=== PATIENT | male | born 1985 | race African-American/Black ===

== ENCOUNTER 2020-12-11 19:38 | Inpatient (IN) | payer OTHER ==
[2020-12-11] MEDS ORDERED: MAGNESIUM HYDROX 2400MG/30ML ORAL SUSPENSION 30 ML CUP PO PRN (23:34)
[2020-12-11] MEDS ORDERED: guaiFENesin 200 MG/10 ML 10 ML UNIT-DOSE CUPS PO PRN (23:34)
[2020-12-11] MEDS ORDERED: P-EPHED 60MG/TRIPROLIDI 2.5MG TABLET PO PRN (23:34)
[2020-12-11] MEDS ORDERED: IBUPROFEN 400 MG TABLET (FP) PO PRN (23:34)
[2020-12-11] MEDS ORDERED: LOPERAMIDE HCL 2 MG CAPSULE PO PRN (23:34)
[2020-12-11] MEDS ORDERED: ACETAMINOPHEN 325 MG TABLET (FP) PO PRN (23:34)
[2020-12-11] MEDS ORDERED: hydrOXYzine PAMOATE 25 MG CAPSULE (FP) PO PRN (23:34)
[2020-12-11] MEDS ORDERED: MAGNESIUM CITRATE 300 ML BOTTLE PO PRN (23:34)
[2020-12-12] MEDS ORDERED: TUBERCULIN PPD 5 TU/0.1ML VIAL ID ONE (02:32)
[2020-12-12] MEDS: MELATONIN 5 MG TABLETS PO SCH ×2 (04:09→21:07)
[2020-12-12] MEDS ORDERED: SPIRONOLACTONE 100 MG PO SCH (08:00)
[2020-12-12] MEDS: FUROSEMIDE 40 MG TABLET (FP) PO SCH (08:55)
[2020-12-12] MEDS: FLUTICASONE PROP 0.05% 16 GM NASAL SPRAY NS SCH (11:14)
[2020-12-12] MEDS: PRENATAL VITAMINS W/ FOLIC ACID TABLET (FP) PO SCH (11:15)
[2020-12-12] MEDS: SPIRONOLACTONE 25 MG TABLET PO SCH (11:15)
[2020-12-12] MEDS: PANTOPRAZOLE 40 MG TABLET PO SCH (11:22)
[2020-12-12 14:35] LABS: HEMOGLOBIN 11.5 GM/dL (11.7-16.9); MCH 35.2 pg (25.7-33.7); MCHC 34.7 g/dl (32.0-35.9); MEAN CELL VOLUME 101.3 fl (80-96); MEAN PLT VOLUME 10.8 fl (7.5-11.1); PLATELET COUNT 113 10^3/uL (134-434); RBC 3.26 M/mm3 (4.00-5.60); RDW 17.6 % (11.9-15.9)
[2020-12-12 16:48] LABS: URINE APPEARANCE CLEAR; URINE BILIRUBIN NEGATIVE (NEGATIVE); URINE COLOR DK YELLOW; URINE GLUCOSE (UA) NEGATIVE (NEGATIVE); URINE KETONE NEGATIVE (NEGATIVE); URINE LEUK ESTERASE NEGATIVE (NEGATIVE); URINE NITRITE NEGATIVE (NEGATIVE); URINE PROTEIN NEGATIVE (NEGATIVE)
[2020-12-12] MEDS: THIAMINE HCL 100 MG TABLET (FP) PO SCH (21:07)
[2020-12-12 22:59] LABS: CALCIUM 8.6 mg/dL (8.5-10.1); CREATININE 0.7 mg/dL (0.55-1.3); TOT PROT 8.1 g/dl (6.4-8.2)
[2020-12-13] MEDS: FUROSEMIDE 40 MG TABLET (FP) PO SCH (07:17)
[2020-12-13] MEDS: PANTOPRAZOLE 40 MG TABLET PO SCH (07:18)
[2020-12-13 08:48] LABS: BILIRUBIN,TOTAL 2.9 mg/dL (0.2-1); BLOOD UREA NITROGEN 11.6 mg/dL (7-18)
[2020-12-13] MEDS: SPIRONOLACTONE 25 MG TABLET PO SCH (10:10)
[2020-12-13] MEDS: PRENATAL VITAMINS W/ FOLIC ACID TABLET (FP) PO SCH (10:10)
[2020-12-13] MEDS: FLUTICASONE PROP 0.05% 16 GM NASAL SPRAY NS SCH (10:10)
[2020-12-13 15:25] LABS: SYPHILIS W/ RPR CONF NON-REACTIVE (NONREACTIVE)
[2020-12-13] MEDS: THIAMINE HCL 100 MG TABLET (FP) PO SCH (21:30)
[2020-12-13] MEDS: MELATONIN 5 MG TABLETS PO SCH (21:30)
[2020-12-14] MEDS: PANTOPRAZOLE 40 MG TABLET PO SCH (07:03)
[2020-12-14] MEDS: FUROSEMIDE 40 MG TABLET (FP) PO SCH (07:04)
[2020-12-14] MEDS: SPIRONOLACTONE 25 MG TABLET PO SCH (09:37)
[2020-12-14] MEDS: PRENATAL VITAMINS W/ FOLIC ACID TABLET (FP) PO SCH (09:37)
[2020-12-14] MEDS: FLUTICASONE PROP 0.05% 16 GM NASAL SPRAY NS SCH (09:37)
[2020-12-14] MEDS: THIAMINE HCL 100 MG TABLET (FP) PO SCH (21:04)
[2020-12-14] MEDS: MELATONIN 5 MG TABLETS PO SCH (21:04)
[2020-12-15] MEDS: PANTOPRAZOLE 40 MG TABLET PO SCH (07:03)
[2020-12-15] MEDS: FUROSEMIDE 40 MG TABLET (FP) PO SCH (07:03)
[2020-12-15] MEDS: PRENATAL VITAMINS W/ FOLIC ACID TABLET (FP) PO SCH (10:17)
[2020-12-15] MEDS: FLUTICASONE PROP 0.05% 16 GM NASAL SPRAY NS SCH (10:17)
[2020-12-15] MEDS: SPIRONOLACTONE 25 MG TABLET PO SCH (11:15)
[2020-12-15] MEDS: THIAMINE HCL 100 MG TABLET (FP) PO SCH (22:03)
[2020-12-15] MEDS: MELATONIN 5 MG TABLETS PO SCH (22:03)
[2020-12-16] MEDS: FUROSEMIDE 40 MG TABLET (FP) PO SCH (08:47)
[2020-12-16] MEDS: FLUTICASONE PROP 0.05% 16 GM NASAL SPRAY NS SCH (09:48)
[2020-12-16] MEDS: PANTOPRAZOLE 40 MG TABLET PO SCH (09:48)
[2020-12-16] MEDS: PRENATAL VITAMINS W/ FOLIC ACID TABLET (FP) PO SCH (09:48)
[2020-12-16] MEDS ORDERED: SPIRONOLACTONE 25 MG TABLET PO SCH (11:47)
[2020-12-16] MEDS: SPIRONOLACTONE 25 MG TABLET PO SCH (11:48)
[2020-12-16] MEDS: traZODone HCL 100 MG TABLET (FP) PO SCH (21:35)
[2020-12-16] MEDS: MELATONIN 5 MG TABLETS PO SCH (21:35)
[2020-12-16] MEDS: THIAMINE HCL 100 MG TABLET (FP) PO SCH (21:35)
[2020-12-17] MEDS: PANTOPRAZOLE 40 MG TABLET PO SCH (07:07)
[2020-12-17] MEDS: FUROSEMIDE 40 MG TABLET (FP) PO SCH (07:09)
[2020-12-17] MEDS ORDERED: PT OWN MED DRAWER 7, Y5N ONE (09:20)
[2020-12-17] MEDS: PRENATAL VITAMINS W/ FOLIC ACID TABLET (FP) PO SCH (10:29)
[2020-12-17] MEDS: FLUTICASONE PROP 0.05% 16 GM NASAL SPRAY NS SCH (10:30)
[2020-12-17] MEDS: SPIRONOLACTONE 25 MG TABLET PO SCH (10:30)
[2020-12-17] MEDS: MELATONIN 5 MG TABLETS PO SCH (21:00)
[2020-12-17] MEDS: THIAMINE HCL 100 MG TABLET (FP) PO SCH (21:00)
[2020-12-17] MEDS: traZODone HCL 100 MG TABLET (FP) PO SCH (21:01)
[2020-12-18] MEDS: PANTOPRAZOLE 40 MG TABLET PO SCH (08:49)
[2020-12-18] MEDS: FUROSEMIDE 40 MG TABLET (FP) PO SCH (09:48)
[2020-12-18] MEDS: FLUTICASONE PROP 0.05% 16 GM NASAL SPRAY NS SCH (09:49)
[2020-12-18] MEDS: PRENATAL VITAMINS W/ FOLIC ACID TABLET (FP) PO SCH (09:49)
[2020-12-18] MEDS: SPIRONOLACTONE 25 MG TABLET PO SCH (09:50)
[2020-12-18] MEDS: MELATONIN 5 MG TABLETS PO SCH (21:49)
[2020-12-18] MEDS: THIAMINE HCL 100 MG TABLET (FP) PO SCH (21:49)
[2020-12-18] MEDS: traZODone HCL 100 MG TABLET (FP) PO SCH (21:49)
[2020-12-19] MEDS: FUROSEMIDE 40 MG TABLET (FP) PO SCH (07:55)
[2020-12-19] MEDS: PANTOPRAZOLE 40 MG TABLET PO SCH (08:37)
[2020-12-19] MEDS: FLUTICASONE PROP 0.05% 16 GM NASAL SPRAY NS SCH (10:36)
[2020-12-19] MEDS: PRENATAL VITAMINS W/ FOLIC ACID TABLET (FP) PO SCH (10:36)
[2020-12-19] MEDS: SPIRONOLACTONE 25 MG TABLET PO SCH (10:55)
[2020-12-19 12:57] LABS: HEMOGLOBIN 11.1 GM/dL (11.7-16.9)
[2020-12-19 13:01] LABS: BASO % 0.4 % (0-2.0); CHLORIDE 106 mmol/L (98-107); EOS % 0.7 % (0-4.5); HEMATOCRIT 32.1 % (35.4-49); LYMPH % 13.5 % (8-40); MCH 35.5 pg (25.7-33.7); MCHC 34.7 g/dl (32.0-35.9); MEAN CELL VOLUME 102.3 fl (80-96); MEAN PLT VOLUME 10.5 fl (7.5-11.1); MONO % 9.4 % (3.8-10.2); PLATELET COUNT 163 10^3/uL (134-434); RBC 3.13 M/mm3 (4.00-5.60); RDW 15.4 % (11.9-15.9); SODIUM 134 mmol/L (136-145); WHITE BLOOD COUNT 9.6 K/mm3 (4.0-10.0)
[2020-12-19 13:03] LABS: ALBUMIN 2.1 g/dl (3.4-5.0); BLOOD UREA NITROGEN 12.3 mg/dL (7-18); CO2 26 mmol/L (21-32); GLUCOSE,RANDOM 88 mg/dL (74-106)
[2020-12-19 13:06] LABS: CREATININE 0.7 mg/dL (0.55-1.3); SGOT/AST 107 U/L (15-37)
[2020-12-19 13:08] LABS: TOT PROT 8.1 g/dl (6.4-8.2)
[2020-12-19 13:09] LABS: ALK PHOS 96 U/L (45-117); ANION GAP 2 MMOL/L (8-16); SGPT/ALT 23 U/L (13-61)
[2020-12-19] MEDS: traZODone HCL 100 MG TABLET (FP) PO SCH (21:00)
[2020-12-19] MEDS: MELATONIN 5 MG TABLETS PO SCH (21:00)
[2020-12-19] MEDS: THIAMINE HCL 100 MG TABLET (FP) PO SCH (21:01)
[2020-12-20] MEDS: FUROSEMIDE 40 MG TABLET (FP) PO SCH (07:00)
[2020-12-20] MEDS: PANTOPRAZOLE 40 MG TABLET PO SCH (07:00)
[2020-12-20] MEDS: PRENATAL VITAMINS W/ FOLIC ACID TABLET (FP) PO SCH (09:46)
[2020-12-20] MEDS: FLUTICASONE PROP 0.05% 16 GM NASAL SPRAY NS SCH (09:47)
[2020-12-20] MEDS: SPIRONOLACTONE 25 MG TABLET PO SCH (10:55)
[2020-12-20] MEDS: traZODone HCL 100 MG TABLET (FP) PO SCH (21:39)
[2020-12-20] MEDS: THIAMINE HCL 100 MG TABLET (FP) PO SCH (21:39)
[2020-12-20] MEDS: MELATONIN 5 MG TABLETS PO SCH (21:39)
[2020-12-21] MEDS: PANTOPRAZOLE 40 MG TABLET PO SCH (07:13)
[2020-12-21] MEDS: FUROSEMIDE 40 MG TABLET (FP) PO SCH (07:13)
[2020-12-21] MEDS: FLUTICASONE PROP 0.05% 16 GM NASAL SPRAY NS SCH (10:25)
[2020-12-21] MEDS: PRENATAL VITAMINS W/ FOLIC ACID TABLET (FP) PO SCH (10:25)
[2020-12-21] MEDS: SPIRONOLACTONE 25 MG TABLET PO SCH (10:25)
[2020-12-21] MEDS ORDERED: BACITRACIN/POLYMYXIN OPH OINT 3.5 GM TUBE OD SCH (11:00)
[2020-12-21] MEDS: BACITRACIN/POLYMYXIN OPH OINT 3.5 GM TUBE OD SCH ×2 (15:40→21:02)
[2020-12-21] MEDS: traZODone HCL 100 MG TABLET (FP) PO SCH (21:02)
[2020-12-21] MEDS: THIAMINE HCL 100 MG TABLET (FP) PO SCH (21:02)
[2020-12-21] MEDS: MELATONIN 5 MG TABLETS PO SCH (21:02)
[2020-12-22] MEDS: PANTOPRAZOLE 40 MG TABLET PO SCH (07:29)
[2020-12-22] MEDS: FUROSEMIDE 40 MG TABLET (FP) PO SCH (07:29)
[2020-12-22] MEDS: FLUTICASONE PROP 0.05% 16 GM NASAL SPRAY NS SCH (11:02)
[2020-12-22] MEDS: SPIRONOLACTONE 25 MG TABLET PO SCH (11:02)
[2020-12-22] MEDS: PRENATAL VITAMINS W/ FOLIC ACID TABLET (FP) PO SCH (11:03)
[2020-12-22] MEDS: BACITRACIN/POLYMYXIN OPH OINT 3.5 GM TUBE OD SCH ×2 (11:03→21:41)
[2020-12-22] MEDS ORDERED: BENZOYL PEROXIDE 5% 60 GM GEL..GRAM. TP ONE (12:13)
[2020-12-22] MEDS: traZODone HCL 100 MG TABLET (FP) PO SCH (21:40)
[2020-12-22] MEDS: THIAMINE HCL 100 MG TABLET (FP) PO SCH (21:40)
[2020-12-22] MEDS: MELATONIN 5 MG TABLETS PO SCH (21:40)
[2020-12-23] MEDS: FUROSEMIDE 40 MG TABLET (FP) PO SCH (07:02)
[2020-12-23] MEDS: PANTOPRAZOLE 40 MG TABLET PO SCH (07:02)
[2020-12-23] MEDS: PRENATAL VITAMINS W/ FOLIC ACID TABLET (FP) PO SCH (10:37)
[2020-12-23] MEDS: LIDOCAINE 5% TOPICAL PATCH TP SCH (10:38)
[2020-12-23] MEDS: BACITRACIN/POLYMYXIN OPH OINT 3.5 GM TUBE OD SCH ×2 (10:39→21:06)
[2020-12-23] MEDS: FLUTICASONE PROP 0.05% 16 GM NASAL SPRAY NS SCH (10:39)
[2020-12-23] MEDS: SPIRONOLACTONE 25 MG TABLET PO SCH (10:40)
[2020-12-23] MEDS: GABAPENTIN 100 MG CAPSULE PO SCH ×2 (13:55→21:05)
[2020-12-23] MEDS: THIAMINE HCL 100 MG TABLET (FP) PO SCH (21:05)
[2020-12-23] MEDS: traZODone HCL 100 MG TABLET (FP) PO SCH (21:05)
[2020-12-23] MEDS: MELATONIN 5 MG TABLETS PO SCH (21:05)
[2020-12-23] MEDS: LIDOCAINE PATCH REMOVAL MC SCH (21:06)
[2020-12-24] MEDS: GABAPENTIN 100 MG CAPSULE PO SCH ×3 (07:55→21:48)
[2020-12-24] MEDS: FUROSEMIDE 40 MG TABLET (FP) PO SCH (09:54)
[2020-12-24] MEDS: FLUTICASONE PROP 0.05% 16 GM NASAL SPRAY NS SCH (09:55)
[2020-12-24] MEDS: SPIRONOLACTONE 25 MG TABLET PO SCH (09:55)
[2020-12-24] MEDS: PANTOPRAZOLE 40 MG TABLET PO SCH (09:55)
[2020-12-24] MEDS: LIDOCAINE 5% TOPICAL PATCH TP SCH (09:55)
[2020-12-24] MEDS: BACITRACIN/POLYMYXIN OPH OINT 3.5 GM TUBE OD SCH ×2 (09:56→21:48)
[2020-12-24] MEDS: PRENATAL VITAMINS W/ FOLIC ACID TABLET (FP) PO SCH (09:56)
[2020-12-24] MEDS: MELATONIN 5 MG TABLETS PO SCH (21:48)
[2020-12-24] MEDS: LIDOCAINE PATCH REMOVAL MC SCH (21:48)
[2020-12-24] MEDS: traZODone HCL 100 MG TABLET (FP) PO SCH (21:48)
[2020-12-24] MEDS: THIAMINE HCL 100 MG TABLET (FP) PO SCH (21:48)
[2020-12-25] MEDS: GABAPENTIN 100 MG CAPSULE PO SCH ×3 (06:48→21:01)
[2020-12-25] MEDS: FUROSEMIDE 40 MG TABLET (FP) PO SCH (07:22)
[2020-12-25] MEDS: PANTOPRAZOLE 40 MG TABLET PO SCH (07:22)
[2020-12-25] MEDS: SPIRONOLACTONE 25 MG TABLET PO SCH (09:47)
[2020-12-25] MEDS: PRENATAL VITAMINS W/ FOLIC ACID TABLET (FP) PO SCH (09:47)
[2020-12-25] MEDS: BENZOYL PEROXIDE 5% 60 GM GEL..GRAM. TP PRN (09:48)
[2020-12-25] MEDS: LIDOCAINE 5% TOPICAL PATCH TP SCH (09:48)
[2020-12-25] MEDS: FLUTICASONE PROP 0.05% 16 GM NASAL SPRAY NS SCH (09:48)
[2020-12-25] MEDS: BACITRACIN/POLYMYXIN OPH OINT 3.5 GM TUBE OD SCH ×2 (09:49→21:03)
[2020-12-25] MEDS: traZODone HCL 100 MG TABLET (FP) PO SCH (21:01)
[2020-12-25] MEDS: THIAMINE HCL 100 MG TABLET (FP) PO SCH (21:01)
[2020-12-25] MEDS: MELATONIN 5 MG TABLETS PO SCH (22:01)
[2020-12-25] MEDS: LIDOCAINE PATCH REMOVAL MC SCH (22:01)
[2020-12-26] MEDS: PANTOPRAZOLE 40 MG TABLET PO SCH (07:01)
[2020-12-26] MEDS: FUROSEMIDE 40 MG TABLET (FP) PO SCH (07:01)
[2020-12-26] MEDS: GABAPENTIN 100 MG CAPSULE PO SCH ×3 (07:01→21:39)
[2020-12-26] MEDS: SPIRONOLACTONE 25 MG TABLET PO SCH (10:05)
[2020-12-26] MEDS: FLUTICASONE PROP 0.05% 16 GM NASAL SPRAY NS SCH (10:06)
[2020-12-26] MEDS: LIDOCAINE 5% TOPICAL PATCH TP SCH (10:06)
[2020-12-26] MEDS: BENZOYL PEROXIDE 5% 60 GM GEL..GRAM. TP PRN (10:06)
[2020-12-26] MEDS: PRENATAL VITAMINS W/ FOLIC ACID TABLET (FP) PO SCH (10:06)
[2020-12-26] MEDS: BACITRACIN/POLYMYXIN OPH OINT 3.5 GM TUBE OD SCH (10:07)
[2020-12-26] MEDS: traZODone HCL 100 MG TABLET (FP) PO SCH (21:39)
[2020-12-26] MEDS: THIAMINE HCL 100 MG TABLET (FP) PO SCH (21:39)
[2020-12-26] MEDS: LIDOCAINE PATCH REMOVAL MC SCH (21:40)
[2020-12-26] MEDS: MELATONIN 5 MG TABLETS PO SCH (21:40)
[2020-12-27] MEDS: GABAPENTIN 100 MG CAPSULE PO SCH ×3 (07:30→21:01)
[2020-12-27] MEDS: FUROSEMIDE 40 MG TABLET (FP) PO SCH (07:38)
[2020-12-27] MEDS: PANTOPRAZOLE 40 MG TABLET PO SCH (07:38)
[2020-12-27] MEDS: LIDOCAINE 5% TOPICAL PATCH TP SCH (10:11)
[2020-12-27] MEDS: PRENATAL VITAMINS W/ FOLIC ACID TABLET (FP) PO SCH (10:11)
[2020-12-27] MEDS: FLUTICASONE PROP 0.05% 16 GM NASAL SPRAY NS SCH (10:11)
[2020-12-27] MEDS: SPIRONOLACTONE 25 MG TABLET PO SCH (10:12)
[2020-12-27] MEDS: MELATONIN 5 MG TABLETS PO SCH (21:01)
[2020-12-27] MEDS: traZODone HCL 100 MG TABLET (FP) PO SCH (21:01)
[2020-12-27] MEDS: THIAMINE HCL 100 MG TABLET (FP) PO SCH (21:01)
[2020-12-27] MEDS: LIDOCAINE PATCH REMOVAL MC SCH (21:02)
[2020-12-28] MEDS: GABAPENTIN 100 MG CAPSULE PO SCH ×3 (06:26→22:01)
[2020-12-28] MEDS: MAG HYDROX/AL HYDROX/SIMETH 30 ML UNIT-DOSE CUP PO PRN (06:26)
[2020-12-28] MEDS: PANTOPRAZOLE 40 MG TABLET PO SCH (07:16)
[2020-12-28] MEDS: FUROSEMIDE 40 MG TABLET (FP) PO SCH (07:16)
[2020-12-28] MEDS ORDERED: COLLOIDAL OATMEAL 1 BAR EACH TP PRN (09:49)
[2020-12-28] MEDS: PRENATAL VITAMINS W/ FOLIC ACID TABLET (FP) PO SCH (10:42)
[2020-12-28] MEDS: FLUTICASONE PROP 0.05% 16 GM NASAL SPRAY NS SCH (10:42)
[2020-12-28] MEDS: SPIRONOLACTONE 25 MG TABLET PO SCH (10:42)
[2020-12-28] MEDS: LIDOCAINE 5% TOPICAL PATCH TP SCH (10:43)
[2020-12-28] MEDS: traZODone HCL 100 MG TABLET (FP) PO SCH (22:01)
[2020-12-28] MEDS: MELATONIN 5 MG TABLETS PO SCH (22:02)
[2020-12-28] MEDS: THIAMINE HCL 100 MG TABLET (FP) PO SCH (22:02)
[2020-12-28] MEDS: LIDOCAINE PATCH REMOVAL MC SCH (22:02)
[2020-12-29] MEDS: GABAPENTIN 100 MG CAPSULE PO SCH ×3 (06:29→21:10)
[2020-12-29] MEDS: MAG HYDROX/AL HYDROX/SIMETH 30 ML UNIT-DOSE CUP PO PRN (06:31)
[2020-12-29] MEDS: FUROSEMIDE 40 MG TABLET (FP) PO SCH (08:08)
[2020-12-29] MEDS: PANTOPRAZOLE 40 MG TABLET PO SCH (08:08)
[2020-12-29] MEDS: LIDOCAINE 5% TOPICAL PATCH TP SCH (09:36)
[2020-12-29] MEDS: FLUTICASONE PROP 0.05% 16 GM NASAL SPRAY NS SCH (09:36)
[2020-12-29] MEDS: PRENATAL VITAMINS W/ FOLIC ACID TABLET (FP) PO SCH (09:36)
[2020-12-29] MEDS: SPIRONOLACTONE 25 MG TABLET PO SCH (11:13)
[2020-12-29] MEDS: THIAMINE HCL 100 MG TABLET (FP) PO SCH (21:10)
[2020-12-29] MEDS: MELATONIN 5 MG TABLETS PO SCH (21:10)
[2020-12-29] MEDS: traZODone HCL 100 MG TABLET (FP) PO SCH (21:10)
[2020-12-29] MEDS: LIDOCAINE PATCH REMOVAL MC SCH (21:10)
[2020-12-29] MEDS: BENZOYL PEROXIDE 5% 60 GM GEL..GRAM. TP PRN (21:11)
[2020-12-30] MEDS: GABAPENTIN 100 MG CAPSULE PO SCH ×3 (07:55→21:23)
[2020-12-30] MEDS: MAG HYDROX/AL HYDROX/SIMETH 30 ML UNIT-DOSE CUP PO PRN ×2 (09:06→22:43)
[2020-12-30] MEDS: PANTOPRAZOLE 40 MG TABLET PO SCH (09:40)
[2020-12-30] MEDS: PRENATAL VITAMINS W/ FOLIC ACID TABLET (FP) PO SCH (09:40)
[2020-12-30] MEDS: FUROSEMIDE 40 MG TABLET (FP) PO SCH (09:40)
[2020-12-30] MEDS: LIDOCAINE 5% TOPICAL PATCH TP SCH (09:40)
[2020-12-30] MEDS: FLUTICASONE PROP 0.05% 16 GM NASAL SPRAY NS SCH (09:40)
[2020-12-30] MEDS: SPIRONOLACTONE 25 MG TABLET PO SCH (10:55)
[2020-12-30] MEDS: traZODone HCL 100 MG TABLET (FP) PO SCH (21:23)
[2020-12-30] MEDS: LIDOCAINE PATCH REMOVAL MC SCH (21:23)
[2020-12-30] MEDS: THIAMINE HCL 100 MG TABLET (FP) PO SCH (21:24)
[2020-12-30] MEDS: MELATONIN 5 MG TABLETS PO SCH (21:24)
[2020-12-31] MEDS: GABAPENTIN 100 MG CAPSULE PO SCH ×3 (06:11→22:58)
[2020-12-31] MEDS: FUROSEMIDE 40 MG TABLET (FP) PO SCH (07:03)
[2020-12-31] MEDS: PANTOPRAZOLE 40 MG TABLET PO SCH (07:03)
[2020-12-31] MEDS: PRENATAL VITAMINS W/ FOLIC ACID TABLET (FP) PO SCH (10:20)
[2020-12-31] MEDS: LIDOCAINE 5% TOPICAL PATCH TP SCH (10:21)
[2020-12-31] MEDS: SPIRONOLACTONE 25 MG TABLET PO SCH (10:21)
[2020-12-31] MEDS: FLUTICASONE PROP 0.05% 16 GM NASAL SPRAY NS SCH (10:21)
[2020-12-31] MEDS: THIAMINE HCL 100 MG TABLET (FP) PO SCH (21:02)
[2020-12-31] MEDS: MELATONIN 5 MG TABLETS PO SCH (21:02)
[2020-12-31] MEDS: traZODone HCL 100 MG TABLET (FP) PO SCH (21:02)
[2020-12-31] MEDS: MAG HYDROX/AL HYDROX/SIMETH 30 ML UNIT-DOSE CUP PO PRN (21:03)
[2020-12-31] MEDS: LIDOCAINE PATCH REMOVAL MC SCH (21:04)
[2021-01-01] MEDS: GABAPENTIN 100 MG CAPSULE PO SCH ×3 (06:39→21:36)
[2021-01-01] MEDS: PANTOPRAZOLE 40 MG TABLET PO SCH (07:24)
[2021-01-01] MEDS: FUROSEMIDE 40 MG TABLET (FP) PO SCH (07:24)
[2021-01-01] MEDS: PRENATAL VITAMINS W/ FOLIC ACID TABLET (FP) PO SCH (09:45)
[2021-01-01] MEDS: LIDOCAINE 5% TOPICAL PATCH TP SCH (09:46)
[2021-01-01] MEDS: FLUTICASONE PROP 0.05% 16 GM NASAL SPRAY NS SCH (09:47)
[2021-01-01] MEDS: SPIRONOLACTONE 25 MG TABLET PO SCH (12:05)
[2021-01-01] MEDS: BENZOYL PEROXIDE 5% 60 GM GEL..GRAM. TP SCH (12:06)
[2021-01-01] MEDS: THIAMINE HCL 100 MG TABLET (FP) PO SCH (21:36)
[2021-01-01] MEDS: LIDOCAINE PATCH REMOVAL MC SCH (21:36)
[2021-01-01] MEDS: MELATONIN 5 MG TABLETS PO SCH (21:36)
[2021-01-01] MEDS: traZODone HCL 100 MG TABLET (FP) PO SCH (21:36)
[2021-01-02] MEDS: GABAPENTIN 100 MG CAPSULE PO SCH ×3 (06:32→21:17)
[2021-01-02] MEDS: FUROSEMIDE 40 MG TABLET (FP) PO SCH (07:17)
[2021-01-02] MEDS: PANTOPRAZOLE 40 MG TABLET PO SCH (07:17)
[2021-01-02] MEDS: SPIRONOLACTONE 25 MG TABLET PO SCH (10:28)
[2021-01-02] MEDS: PRENATAL VITAMINS W/ FOLIC ACID TABLET (FP) PO SCH (10:28)
[2021-01-02] MEDS: BENZOYL PEROXIDE 5% 60 GM GEL..GRAM. TP SCH (10:29)
[2021-01-02] MEDS: LIDOCAINE 5% TOPICAL PATCH TP SCH (10:29)
[2021-01-02] MEDS: FLUTICASONE PROP 0.05% 16 GM NASAL SPRAY NS SCH (10:30)
[2021-01-02] MEDS: THIAMINE HCL 100 MG TABLET (FP) PO SCH (21:17)
[2021-01-02] MEDS: traZODone HCL 100 MG TABLET (FP) PO SCH (21:17)
[2021-01-02] MEDS: MELATONIN 5 MG TABLETS PO SCH (21:18)
[2021-01-02] MEDS: LIDOCAINE PATCH REMOVAL MC SCH (21:18)
[2021-01-03] MEDS: GABAPENTIN 100 MG CAPSULE PO SCH ×3 (06:26→21:43)
[2021-01-03] MEDS: FUROSEMIDE 40 MG TABLET (FP) PO SCH (07:35)
[2021-01-03] MEDS: PANTOPRAZOLE 40 MG TABLET PO SCH (07:35)
[2021-01-03] MEDS: PRENATAL VITAMINS W/ FOLIC ACID TABLET (FP) PO SCH (10:31)
[2021-01-03] MEDS: FLUTICASONE PROP 0.05% 16 GM NASAL SPRAY NS SCH (10:32)
[2021-01-03] MEDS: LIDOCAINE 5% TOPICAL PATCH TP SCH (10:32)
[2021-01-03] MEDS: BENZOYL PEROXIDE 5% 60 GM GEL..GRAM. TP SCH (10:34)
[2021-01-03] MEDS: SPIRONOLACTONE 25 MG TABLET PO SCH (10:53)
[2021-01-03] MEDS: traZODone HCL 100 MG TABLET (FP) PO SCH (21:43)
[2021-01-03] MEDS: THIAMINE HCL 100 MG TABLET (FP) PO SCH (21:44)
[2021-01-03] MEDS: MELATONIN 5 MG TABLETS PO SCH (21:44)
[2021-01-03] MEDS: LIDOCAINE PATCH REMOVAL MC SCH (21:44)
[2021-01-04] MEDS: GABAPENTIN 100 MG CAPSULE PO SCH ×3 (06:57→21:01)
[2021-01-04] MEDS: PANTOPRAZOLE 40 MG TABLET PO SCH (07:11)
[2021-01-04] MEDS: FUROSEMIDE 40 MG TABLET (FP) PO SCH (07:11)
[2021-01-04] MEDS: PRENATAL VITAMINS W/ FOLIC ACID TABLET (FP) PO SCH (10:13)
[2021-01-04] MEDS: FLUTICASONE PROP 0.05% 16 GM NASAL SPRAY NS SCH (10:14)
[2021-01-04] MEDS: SPIRONOLACTONE 25 MG TABLET PO SCH (10:14)
[2021-01-04] MEDS: BENZOYL PEROXIDE 5% 60 GM GEL..GRAM. TP SCH (10:15)
[2021-01-04] MEDS: LIDOCAINE 5% TOPICAL PATCH TP SCH (10:29)
[2021-01-04] MEDS: traZODone HCL 100 MG TABLET (FP) PO SCH (21:01)
[2021-01-04] MEDS: LIDOCAINE PATCH REMOVAL MC SCH (21:01)
[2021-01-04] MEDS: THIAMINE HCL 100 MG TABLET (FP) PO SCH (21:01)
[2021-01-04] MEDS: MELATONIN 5 MG TABLETS PO SCH (21:01)
[2021-01-05] MEDS: GABAPENTIN 100 MG CAPSULE PO SCH ×3 (06:14→21:29)
[2021-01-05] MEDS: FUROSEMIDE 40 MG TABLET (FP) PO SCH (07:02)
[2021-01-05] MEDS: PANTOPRAZOLE 40 MG TABLET PO SCH (07:02)
[2021-01-05] MEDS: FLUTICASONE PROP 0.05% 16 GM NASAL SPRAY NS SCH (09:36)
[2021-01-05] MEDS: BENZOYL PEROXIDE 5% 60 GM GEL..GRAM. TP SCH (09:36)
[2021-01-05] MEDS: LIDOCAINE 5% TOPICAL PATCH TP SCH (09:36)
[2021-01-05] MEDS: PRENATAL VITAMINS W/ FOLIC ACID TABLET (FP) PO SCH (09:36)
[2021-01-05] MEDS: SPIRONOLACTONE 25 MG TABLET PO SCH (09:36)
[2021-01-05] MEDS: MELATONIN 5 MG TABLETS PO SCH (21:29)
[2021-01-05] MEDS: traZODone HCL 100 MG TABLET (FP) PO SCH (21:29)
[2021-01-05] MEDS: THIAMINE HCL 100 MG TABLET (FP) PO SCH (21:29)
[2021-01-05] MEDS: LIDOCAINE PATCH REMOVAL MC SCH (21:30)
[2021-01-06] MEDS: GABAPENTIN 100 MG CAPSULE PO SCH ×3 (06:04→21:01)
[2021-01-06] MEDS: FUROSEMIDE 40 MG TABLET (FP) PO SCH (07:11)
[2021-01-06] MEDS: PANTOPRAZOLE 40 MG TABLET PO SCH (07:11)
[2021-01-06] MEDS: PRENATAL VITAMINS W/ FOLIC ACID TABLET (FP) PO SCH (10:06)
[2021-01-06] MEDS: LIDOCAINE 5% TOPICAL PATCH TP SCH (10:07)
[2021-01-06] MEDS: BENZOYL PEROXIDE 5% 60 GM GEL..GRAM. TP SCH (10:07)
[2021-01-06] MEDS: SPIRONOLACTONE 25 MG TABLET PO SCH (10:07)
[2021-01-06] MEDS: FLUTICASONE PROP 0.05% 16 GM NASAL SPRAY NS SCH (10:07)
[2021-01-06] MEDS: MELATONIN 5 MG TABLETS PO SCH (21:01)
[2021-01-06] MEDS: traZODone HCL 100 MG TABLET (FP) PO SCH (21:01)
[2021-01-06] MEDS: THIAMINE HCL 100 MG TABLET (FP) PO SCH (21:01)
[2021-01-06] MEDS: LIDOCAINE PATCH REMOVAL MC SCH (21:02)
[2021-01-07] MEDS: GABAPENTIN 100 MG CAPSULE PO SCH (06:20)
[2021-01-07] MEDS: FUROSEMIDE 40 MG TABLET (FP) PO SCH (07:09)
[2021-01-07] MEDS: PANTOPRAZOLE 40 MG TABLET PO SCH (07:09)
[2021-01-07 07:33] VITALS: BP 107/68; PULSE 89; TEMP 98.2
[2021-01-07] MEDS ORDERED: PT OWN MED DRAWER 7, Y5N ONE (07:33)
== END 2021-01-07 08:01 | disposition home or self-care (01) | DRG 772 ==
LOC: YASAS 19:38 → Y3W 12-12 02:01
PROVIDERS: ADMIT Allergy & Immunology; ATTEND Allergy & Immunology
PROC: HZ42ZZZ Group Counseling for Substance Abuse Treatment, Cognitive-Behavioral (ICD-10-PCS; principal; 2020-12-12)
DX: F10.20 Alcohol dependence, uncomplicated (principal); F17.210 Nicotine dependence, cigarettes, uncomplicated; F10.24 Alcohol dependence with alcohol-induced mood disorder; F10.282 Alcohol dependence with alcohol-induced sleep disorder; D72.829 Elevated white blood cell count, unspecified; K70.30 Alcoholic cirrhosis of liver without ascites; D64.9 Anemia, unspecified; H00.013 Hordeolum externum right eye, unspecified eyelid; L70.9 Acne, unspecified; Z87.19 Personal history of other diseases of the digestive system; Z56.0 Unemployment, unspecified; Z59.00 Homelessness unspecified
CPT/HCPCS: 36415; 80053; 81003; 84132; 85025; 85027; 86780; 86803; 87086; C9803; U0003; U0005